=== PATIENT | female | born 1995 | race Caucasian/White ===

== ENCOUNTER 2024-10-08 22:46 | Inpatient (IN) | payer OTHER ==
[~2024-10-08] VITALS: Ht 167.6 cm; Wt 2.7 kg
[2024-10-08 22:45] VITALS: BP 132/74
[2024-10-08] MEDS ORDERED: PRENATAL TABLE1 EAC4 PO (22:52)
[2024-10-08] MEDS ORDERED: RINGERS SOLUTION,LACTATED 1,000 ML IV SCH (23:00)
[2024-10-08] MEDS ORDERED: CEFAZOLIN SODIUM 1,000 MG VIAL IV ONE (23:15)
[2024-10-08] MEDS ORDERED: CITRIC ACID/SODIUM CITRATE 30 ML BLIST.PACK PO ONE (23:15)
[2024-10-08 23:43] LABS: HEMATOCRIT 38.2 % (36.0-45.00); HEMOGLOBIN 13.6 g/dL (12.0-15.00); MEAN CELL VOLUME 94.3 fL (80.00-100.00); MEAN CORPUSCULAR HEMOGLOBIN 33.5 pg (27.00-32.0); MEAN CORPUSCULAR HGB CONC 35.6 g/dl (32.0-36.0); PLATELET COUNT 190 K/uL (150-450); RED BLOOD COUNT 4.05 M/uL (4.00-6.00); RED CELL DISTRIBUTION WIDTH 13.4 % (11.5-14.5)
[2024-10-08 23:59] LABS: INR < 0.93; PARTIAL THROMBOPLASTIN TIME 30.5 SECONDS (22.0-34.0); PROTHROMBIN TIME 10.2 SECONDS (9.0-11.5)
[2024-10-09 00:03] LABS: ALBUMIN 3.2 gm/dL (3.4-5.0); BILIRUBIN TOTAL 0.39 mg/dL (0.3-1.2); CREATININE SERUM 0.67 mg/dL (0.55-1.02); GFR 102.66; GLOBULINA 3.4 G/DL (2.4-3.5); POTASSIUM 3.89 mEq/L (3.5-5.1); TOTAL PROTEIN 6.6 gm/dL (6.4-8.2)
[2024-10-09] MEDS ORDERED: OXYTOCIN 1,000 ML IV SCH (00:45)
[2024-10-09] MEDS ORDERED: MORPHINE SULFATE 4 MG/ML CARTRIDGE IV PRN (00:45)
[2024-10-09] MEDS ORDERED: ONDANSETRON HCL 2 MG/ML VIAL IV PRN (00:45)
[2024-10-09] MEDS ORDERED: MORPHINE SULFATE 4 MG/ML VIAL IV ONE ×2 (01:25→01:55)
[2024-10-09] MEDS ORDERED: ERYTHROMYCIN BASE OPHT 1GM EACH TUBE OP ONE (02:00)
[2024-10-09] MEDS ORDERED: OXYTOCIN 10 UNITS/ML VIAL IV ONE (02:00)
[2024-10-09 03:56] VITALS: BP 95/61
[2024-10-09 13:56] VITALS: BP 105/64
[2024-10-09 16:00] VITALS: BP 97/60
[2024-10-09] MEDS ORDERED: OxyCODONE HCL/APAP UD (PERCOCET) PO SCH (17:00)
[2024-10-09 20:01] LABS: HEMATOCRIT 36.7 % (36.0-45.00); HEMOGLOBIN 12.8 g/dL (12.0-15.00); MEAN CELL VOLUME 95.7 fL (80.00-100.00); MEAN CORPUSCULAR HEMOGLOBIN 33.5 pg (27.00-32.0); PLATELET COUNT 212 K/uL (150-450); RED BLOOD COUNT 3.84 M/uL (4.00-6.00); RED CELL DISTRIBUTION WIDTH 13.8 % (11.5-14.5)
[2024-10-09] MEDS ORDERED: OxyCODONE HCL/APAP UD (PERCOCET) PO ONE (22:15)
[2024-10-09 23:54] VITALS: BP 90/50
[2024-10-10 05:00] VITALS: BP 110/68
[2024-10-10] MEDS ORDERED: IBUprofen 400 MG TABLET PO SCH (09:00)
[2024-10-10 10:50] VITALS: BP 104/65
[2024-10-10 12:42] LABS: HEMATOCRIT 30.3 % (36.0-45.00); HEMOGLOBIN 10.7 g/dL (12.0-15.00); MEAN CELL VOLUME 95.8 fL (80.00-100.00); MEAN CORPUSCULAR HEMOGLOBIN 33.8 pg (27.00-32.0); MEAN CORPUSCULAR HGB CONC 35.3 g/dl (32.0-36.0); PLATELET COUNT 177 K/uL (150-450); RED BLOOD COUNT 3.16 M/uL (4.00-6.00); RED CELL DISTRIBUTION WIDTH 13.6 % (11.5-14.5)
[2024-10-10 16:43] VITALS: BP 110/72
[2024-10-11 00:43] VITALS: BP 100/64
[2024-10-11] MEDS ORDERED: OxyCODONE HCL 5 MG TABLET (ROXICODONE) PO PRN (06:00)
[2024-10-11 07:37] VITALS: BP 97/65
[2024-10-11] MEDS ORDERED: IBUprofen 400 MG TABLET PO SCH (09:00)
== END 2024-10-11 12:38 | disposition home or self-care (01) | DRG 788 ==
LOC: LDR 22:46 → OB/GYN 10-09 01:47
PROVIDERS: ADMIT Obstetrics & Gynecology; ATTEND Obstetrics & Gynecology
PROC: 4A1HXCZ Monitoring of Products of Conception, Cardiac Rate, External Approach (ICD-10-PCS; 2024-10-08)
PROC: 10D00Z1 Extraction of Products of Conception, Low, Open Approach (ICD-10-PCS; principal; 2024-10-08 23:00)
DX: O32.6XX0 Maternal care for compound presentation, not applicable or unspecified (principal); Z3A.38 38 weeks gestation of pregnancy; Z37.0 Single live birth; Z20.822 Contact with and (suspected) exposure to COVID-19